=== PATIENT | female | born 1980 | race American Indian/Alaskan Native ===

== ENCOUNTER 2018-06-07 15:36 | Emergency (ER) | payer SELFPAY ==
[2018-06-07] MEDS ORDERED: Ketorolac 60 MG/2 ML SDV IM ONE (16:14)
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
--- NOTE | 2018-06-09 16:53 | CR ---
EXAM DATE: 06/07/18 PATIENT'S AGE: 38 Patient: LOREE POZO Facility: [place], [place] Site . Site : 1980 Study: XRay Pelvis sacrum/coccyx [id number] 5:15:32 PM Ordering Physician: Doctor Ruff Final Report: HISTORY: Fall. COMPARISON: None. FINDINGS: No evidence for acute fracture or dislocation. Soft tissues are within normal. Dictated by Brigitte Mims MD @ Jun 07 2018 5:27PM (Electronic Signature) Report Signed by Proxy. CUATE
== END 2018-06-07 17:49 | disposition home or self-care (01) ==
LOC: MW.ED 15:36
DX: S30.0XXA Contusion of lower back and pelvis, initial encounter (principal); S20.219A Contusion of unspecified front wall of thorax, initial encounter; Y04.0XXA Assault by unarmed brawl or fight, initial encounter
CPT/HCPCS: 71101; 72220; 96372; 99284; J1885

== ENCOUNTER 2018-06-15 14:06 | Emergency (ER) | payer SELFPAY ==
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
== END 2018-06-15 14:49 | disposition home or self-care (01) ==
LOC: MW.ED 14:06
DX: M54.42 Lumbago with sciatica, left side (principal); M54.41 Lumbago with sciatica, right side
CPT/HCPCS: 99283

== ENCOUNTER 2018-07-07 19:51 | Emergency (ER) | payer OTHER ==
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
[2018-07-07] MEDS ORDERED: Ketorolac 60 MG/2 ML SDV IM ONE (20:33)
== END 2018-07-07 21:55 | disposition home or self-care (01) ==
LOC: MW.ED 19:51
DX: M54.42 Lumbago with sciatica, left side (principal); X50.0XXA Overexertion from strenuous movement or load, initial encounter; W01.0XXA Fall on same level from slipping, tripping and stumbling without subsequent striking against object, initial encounter
CPT/HCPCS: 96372; 99283; J1885; J2360

== ENCOUNTER 2018-07-17 11:21 | Emergency (ER) | payer SELFPAY ==
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
--- NOTE | 2018-07-18 19:10 | CR ---
EXAM DATE: 07/17/18 PATIENT'S AGE: 38 Patient: LOREE POZO Facility: [place], [place] Site . Site : [id number] Study: XRay Spine Lumbar [id number] 12:36:16 PM Ordering Physician: Doctor Ruff Final Report: INDICATION: Low back pain. COMPARISON: None. FINDINGS: There are 5 lumbar-type vertebral bodies. The vertebral body heights and disc spaces are preserved. Spondylolysis without spondylolisthesis is noted at L5/S1 level. Bony alignment is normal. Bony mineralization is normal. The visualized sacroiliac joints are intact. Surgical clips in the right upper quadrant reflect prior cholecystectomy. IMPRESSION: L5/S1 spondylolysis without spondylolisthesis. Dictated by Bette Covarrubias MD @ Jul 17 2018 12:54PM (Electronic Signature) Report Signed by Proxy. CUATE
== END 2018-07-17 13:20 | disposition home or self-care (01) ==
LOC: MW.ED 11:21
DX: M48.36 Traumatic spondylopathy, lumbar region (principal)
CPT/HCPCS: 72100; 72100-26; 99283

== ENCOUNTER 2018-07-24 20:24 | Emergency (ER) | payer SELFPAY ==
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
== END 2018-07-24 20:45 ==
LOC: MW.ED 20:24
DX: Z02.89 Encounter for other administrative examinations (principal)
CPT/HCPCS: 99283

== ENCOUNTER 2018-08-05 08:41 | Emergency (ER) | payer SELFPAY ==
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
== END 2018-08-05 09:30 | disposition home or self-care (01) ==
LOC: MW.ED 08:41
DX: M54.5 Low back pain (principal); G89.29 Other chronic pain; Z79.899 Other long term (current) drug therapy; W10.9XXA Fall (on) (from) unspecified stairs and steps, initial encounter
CPT/HCPCS: 99283

== ENCOUNTER 2019-02-05 12:27 | Emergency (ER) | payer SELFPAY ==
--- NOTE | 2019-02-05 12:41 | EDM.PDOC ---
ED HPI GENERAL MEDICAL PROBLEM - General Chief Complaint: Upper Extremity Injury/Pain Stated Complaint: SMASHED FINGER Time Seen by Provider: 02/05/19 12:41 Source of Information: Reports: Patient History Limitations: Reports: No Limitations - History of Present Illness INITIAL COMMENTS - FREE TEXT/NARRATIVE: HISTORY AND PHYSICAL: History of present illness: Patient is a 39-year-old female here with complaint of right middle finger injury. She states she was moving some boxes this morning when a box fell landing on her right middle finger. She denies fevers, chills, nausea, vomiting. She is UTD on tetanus. Review of systems: As per history of present illness and below otherwise all systems reviewed and negative. Past medical history: As per history of present illness and as reviewed below otherwise noncontributory. Surgical history: As per history of present illness and as reviewed below otherwise noncontributory. Social history: No reported history of drug or alcohol abuse. Family history: As per history of present illness and as reviewed below otherwise noncontributory. Physical exam: General: Patient sitting comfortably in no acute distress and nontoxic appearing HEENT: Atraumatic, normocephalic, pupils reactive, negative for conjunctival pallor or scleral icterus, mucous membranes moist, throat clear, neck supple, nontender, trachea midline. No meningeal signs. Lungs: Clear to auscultation, breath sounds equal bilaterally, chest nontender. Heart: S1S2, regular, negative for clicks, rubs, or overt murmur. Abdomen: Soft, nondistended, nontender. Negative for masses or hepatosplenomegaly. Negative for costovertebral tenderness. No rigidity, rebound , guarding. Pelvis: Stable nontender. Genitourinary: Deferred. Rectal: Deferred. Extremities: Hematoma of the distal right finger just distal to the DIP. Patient has acrylic nails on but a subungual hematoma is noted at the proximal nail plate. She is able to flex at the DIP and PIP without difficultly or pain. negative for cords or calf pain. Neurovascular unremarkable. Neuro: Awake, alert, oriented. Cranial nerves II through XII unremarkable. Cerebellum unremarkable. Motor and sensory unremarkable throughout. Exam nonfocal. Notes: Distal 3rd right finger was cleansed with an alcohol swab and a small poke made with an 18 gauge needle in the area of the hematoma. A moderate amount of purulent fluid ensued. Nail trephination of the nail plate achieved using an electrocautery pen. Diagnostics: x-ray finger Therapeutics: Prescriptions: Bactrim Impression: Finger injury, abscess Plan: 1. Take medication as instructed 2. Follow up with primary care provider 3. Return to ED as needed as discussed Definitive disposition and diagnosis as appropriate pending reevaluation and review of above. right 3rd finger Pain Score (Numeric/FACES): 8 - Related Data Allergies Allergy/AdvReac Type Severity Reaction Status Date / Time No Known Allergies Allergy Verified 02/05/19 12:37 Home Meds: Home Meds Sulfamethoxazole/Trimethoprim [Bactrim Ds Tablet] 1 each PO BID 7 Days #14 tablet 02/05/19 [Rx] Past Medical History - Past Health History Medical/Surgical History: Denies Medical/Surgical History Cardiovascular History: Reports: Hypertension Musculoskeletal History: Reports: Back Pain, Chronic Psychiatric History: Reports: Emotional Problems - Infectious Disease History Infectious Disease History: Reports: None - Past Surgical History Cardiovascular Surgical History: Reports: None GI Surgical History: Reports: Cholecystectomy Social & Family History - Family History Family Medical History: Noncontributory - Caffeine Use Caffeine Use: Reports: Coffee, Energy Drinks, Soda, Tea Review of Systems - Review of Systems Review Of Systems: ROS reveals no pertinent complaints other than HPI. ED EXAM, GENERAL - Physical Exam Exam: See Below (see dictation) Course - Vital Signs Last Recorded V/S: Last Vital Signs Temp 97.6 F 02/05/19 12:37 Pulse 58 L 02/05/19 13:59 Resp 18 02/05/19 13:59 BP 186/91 H 02/05/19 13:59 Pulse Ox 100 02/05/19 13:59 Departure - Departure Time of Disposition: 13:42 Disposition: Home, Self-Care 01 Condition: Good Clinical Impression: Finger injury, Abscess - Discharge Information Prescriptions: Sulfamethoxazole/Trimethoprim [Bactrim Ds Tablet] 1 each PO BID 7 Days #14 tablet Instructions: Skin Abscess, Finger Sprain, Adult Referrals: PCP,Unknown [Primary Care Provider] - Forms: ED Department Discharge Additional Instructions: The following information is given to patients seen in the emergency department who are being discharged to home. This information is to outline your options for follow-up care. We provide all patients seen in our emergency department with a follow-up referral. The need for follow-up, as well as the timing and circumstances, are variable depending upon the specifics of your emergency department visit. If you don't have a primary care physician on staff, we will provide you with a referral. We always advise you to contact your personal physician following an emergency department visit to inform them of the circumstance of the visit and for follow-up with them and/or the need for any referrals to a consulting specialist. The emergency department will also refer you to a specialist when appropriate. This referral assures that you have the opportunity for follow-up care with a specialist. All of these measure are taken in an effort to provide you with optimal care, which includes your follow-up. Under all circumstances we always encourage you to contact your private physician who remains a resource for coordinating your care. When calling for follow-up care, please make the office aware that this follow-up is from your recent emergency room visit. If for any reason you are refused follow-up, please contact the [facility] Emergency Department at and asked to speak to the emergency department charge nurse. [facility] [address] [place] [address] [id number] [address] [address] 1. Take medication as instructed 2. Follow up with primary care provider 3. Return to ED as needed as discussed
--- NOTE | 2019-02-05 13:12 | CR ---
EXAMINATION: Right hand, third digit HISTORY: Injury COMPARISON: None TECHNIQUE: 3 views FINDINGS/IMPRESSION: There is no acute osseous abnormality, dislocation, or fracture. Prominent mineralization and joint spaces are preserved. Moderate focal soft tissue swelling involving the distal third phalanx.
== END 2019-02-05 13:59 | disposition home or self-care (01) ==
LOC: MW.ED 12:27
DX: S60.131A Contusion of right middle finger with damage to nail, initial encounter (principal); L02.511 Cutaneous abscess of right hand; I10 Essential (primary) hypertension; W20.8XXA Other cause of strike by thrown, projected or falling object, initial encounter
CPT/HCPCS: 11740; 73140-26-F7; 73140-F7; 99282; 99283-25

== ENCOUNTER 2020-02-25 16:55 | Emergency (ER) | payer MEDICAID, OTHER ==
[2020-02-25] MEDS ORDERED: Ondansetron 4 MG Tab.DIS PO ONE (17:10)
--- NOTE | 2020-02-25 17:10 | EDM.PDOC ---
ED HPI GENERAL MEDICAL PROBLEM - General Chief Complaint: Respiratory Problem Stated Complaint: COUGH,CONGESTION,UPPER RESPIRATORY Time Seen by Provider: 02/25/20 17:00 Source of Information: Reports: Patient History Limitations: Reports: No Limitations - History of Present Illness INITIAL COMMENTS - FREE TEXT/NARRATIVE: HISTORY AND PHYSICAL: History of present illness: Patient is a 40-year-old female who presents to the emergency room with complaints of body aches, subjective fever, chills, cough, mild SOB and nausea. She states symptoms started on Saturday and have progressively gotten worse. She has been using [id number] medications without much relief. Denies any recent travel or exposure to anyone that has known to been ill. Patient denies any previous/trauma, change in vision, syncope or near syncope. Denies any chest pain, back pain, abdominal pain, vomiting, diarrhea, constipation or dysuria. Denies any chance of . Patient has been eating and drinking "okay", but has been less than usual. Review of systems: As per history of present illness and below otherwise all systems reviewed and negative. Past medical history: As per history of present illness and as reviewed below otherwise noncontributory. Surgical history: As per history of present illness and as reviewed below otherwise noncontributory. Social history: See social history for further information Family history: As per history of present illness and as reviewed below otherwise noncontributory. Physical exam: General: Well-developed and well-nourished 40-year-old female. Alert and oriented. Nontoxic-appearing and in no acute distress. HEENT: Atraumatic, normocephalic, pupils equal and reactive bilaterally, negative for conjunctival pallor or scleral icterus, mucous membranes moist, TMs normal bilaterally, throat clear, neck supple, nontender, trachea midline. No drooling or trismus noted. No meningeal signs. No hot potato voice noted. Lungs: Slightly diminished bilaterally, breath sounds equal bilaterally, chest nontender. Heart: S1S2, regular rate and rhythm without overt murmur Abdomen: Soft, nondistended, nontender. Skin: Intact, warm, dry. No lesions or rashes noted. Extremities: Atraumatic, moves all extremities per self without difficulty or deficits, negative for cords or calf pain. Neurovascular unremarkable. Neuro: Awake, alert, oriented. Cranial nerves II through XII unremarkable. Cerebellum unremarkable. Motor and sensory unremarkable throughout. Exam nonfocal. Notes: Mild perihilar bronchitis most likely viral in etiology. VSS. Medication, COVID precautions and supportive care measures were reviewed and discussed. Voices understanding and is agreeable to plan of care. Denies any further questions or concerns at this time. Diagnostics: Influenza, CXR, COVID-19 Therapeutics: Zofran Prescription: Zofran, Z-sera Impression: Bronchitis Plan: 1. Take the prescribed medications as directed. We did test you for COVID-19. STAY HOME UNTIL RESULTS have returned. These can take 2-4 days to come back. We will call you with these results as they come back. Continue to monitor your symptoms. For further questions related to the COVID-19, the public can call the [facility] hotline at from 7am - 7pm Saturday - Saturday. 2. Good handwashing (at least 20 seconds) and frequently. Contact precautions such as coughing into your elbow, etc... 3. You can alternate Tylenol and ibuprofen as needed for pain and fever management. 3. Please follow-up with your primary care provider as we discussed. Return to the ED as needed and as discussed. Definitive disposition and diagnosis as appropriate pending reevaluation and review of above. Upper Body Pain Score (Numeric/FACES): 7 - Related Data Allergies Allergy/AdvReac Type Severity Reaction Status Date / Time No Known Allergies Allergy Verified 02/25/20 17:02 Home Meds: Home Meds Azithromycin [Zithromax] 1 dose PO DAILY 5 Days #6 tab 02/25/20 [Rx] Benzonatate [Tessalon Perle] 100 mg PO TID PRN #20 capsule 02/25/20 [Rx] Ondansetron [Zofran ODT] 4 mg PO Q6H PRN #6 tab.dis 02/25/20 [Rx] Past Medical History - Past Health History Medical/Surgical History: Denies Medical/Surgical History Cardiovascular History: Reports: Hypertension Musculoskeletal History: Reports: Back Pain, Chronic Psychiatric History: Reports: Emotional Problems - Infectious Disease History Infectious Disease History: Reports: None - Past Surgical History Cardiovascular Surgical History: Reports: None GI Surgical History: Reports: Cholecystectomy Social & Family History - Family History Family Medical History: Noncontributory - Caffeine Use Caffeine Use: Reports: Coffee, Energy Drinks, Soda, Tea ED ROS GENERAL - Review of Systems Review Of Systems: Comprehensive ROS is negative, except as noted in HPI. ED EXAM, GENERAL - Physical Exam Exam: See Below (See dictation) Course - Vital Signs Last Recorded V/S: Last Vital Signs Temp 98.3 F 02/25/20 17:47 Pulse 72 02/25/20 17:47 Resp 20 02/25/20 17:47 BP 147/91 H 02/25/20 17:47 Pulse Ox 100 02/25/20 17:47 - Orders/Labs/Meds Orders: Active Orders 24 hr Category Date Time Status CORONAVIRUS COVID-19 PCR PHL [MREF] Stat Lab 02/25/20 17:40 Received Isolation [COMM] Routine Oth 02/25/20 17:08 Active Meds: Medications Discontinued Medications Generic Name Dose Route Start Last Admin Trade Name Freq PRN Reason Stop Dose Admin Ondansetron HCl 4 mg 02/25/20 17:10 02/25/20 17:46 Zofran Odt PO 02/25/20 17:11 4 mg ONETIME ONE Administration Departure - Departure Time of Disposition: 18:18 Disposition: Home, Self-Care 01 Clinical Impression: Bronchitis - Discharge Information Prescriptions: Azithromycin [Zithromax] 1 dose PO DAILY 5 Days #6 tab Benzonatate [Tessalon Perle] 100 mg PO TID PRN #20 capsule PRN Reason: Cough Ondansetron [Zofran ODT] 4 mg PO Q6H PRN #6 tab.dis PRN Reason: Nausea Instructions: Acute Bronchitis, Adult, [id number] Referrals: PCP,None [Primary Care Provider] - Forms: ED Department Discharge Additional Instructions: The following information is given to patients seen in the emergency department who are being discharged to home. This information is to outline your options for follow-up care. We provide all patients seen in our emergency department with a follow-up referral. The need for follow-up, as well as the timing and circumstances, are variable depending upon the specifics of your emergency department visit. If you don't have a primary care physician on staff, we will provide you with a referral. We always advise you to contact your personal physician following an emergency department visit to inform them of the circumstance of the visit and for follow-up with them and/or the need for any referrals to a consulting specialist. The emergency department will also refer you to a specialist when appropriate. This referral assures that you have the opportunity for follow-up care with a specialist. All of these measure are taken in an effort to provide you with optimal care, which includes your follow-up. Under all circumstances we always encourage you to contact your private physician who remains a resource for coordinating your care. When calling for follow-up care, please make the office aware that this follow-up is from your recent emergency room visit. If for any reason you are refused follow-up, please contact the [facility] Emergency Department at and asked to speak to the emergency department charge nurse. [facility] [address] [place] [id number] [place] [address] 1. Take the prescribed medications as directed. We did test you for COVID-19. STAY HOME UNTIL RESULTS have returned. These can take 2-4 days to come back. We will call you with these results as they come back. Continue to monitor your symptoms. For further questions related to the COVID-19, the public can call the [facility] hotline at from 7am - 7pm Saturday - Saturday. 2. Good handwashing (at least 20 seconds) and frequently. Contact precautions such as coughing into your elbow, etc... 3. You can alternate Tylenol and ibuprofen as needed for pain and fever management. 3. Please follow-up with your primary care provider as we discussed. Return to the ED as needed and as discussed. Sepsis Event Note - Evaluation Sepsis Screening Result: No Definite Risk - Focused Exam Vital Signs: Vital Signs Temp Pulse Resp BP Pulse Ox 02/25/20 17:47 98.3 F 72 20 147/91 H 100 02/25/20 17:02 98.4 F 80 16 140/85 99 Date Exam was Performed: 02/25/20 Time Exam was Performed: 18:17 - My Orders Last 24 Hours: My Active Orders 02/25/20 17:08 Isolation [COMM] Routine 02/25/20 17:40 CORONAVIRUS COVID-19 PCR PHL [MREF] Stat - Assessment/Plan Last 24 Hours: My Active Orders 02/25/20 17:08 Isolation [COMM] Routine 02/25/20 17:40 CORONAVIRUS COVID-19 PCR PHL [MREF] Stat
--- NOTE | 2020-02-25 17:52 | CR ---
Chest: Portable view of the chest was obtained. Comparison: Previous chest x-ray is not available. Cardiothymic silhouette is normal. Mild increased perihilar interstitial change is seen possibly due to mild bronchitis. Lungs otherwise are clear. Bony structures are unremarkable. Impression: 1. Mild perihilar bronchitis most likely viral in etiology. 2. No additional abnormality is appreciated on portable chest x-ray. Diagnostic code #3 This report was dictated in MDT
== END 2020-02-25 19:11 | disposition home or self-care (01) ==
LOC: MW.ED 16:55
DX: J40 Bronchitis, not specified as acute or chronic (principal); Z90.49 Acquired absence of other specified parts of digestive tract; Z20.828 Contact with and (suspected) exposure to other viral communicable diseases
CPT/HCPCS: 71045; 87635; 87804; 99283; A9270; U0002

== ENCOUNTER 2022-11-28 18:01 | Emergency (ER) | payer MEDICAID, OTHER | END 2022-11-28 21:00 | disposition left against medical advice (07) | LOC: MW.ED 18:01 | DX: Z53.21 Procedure and treatment not carried out due to patient leaving prior to being seen by health care provider (principal) ==

== ENCOUNTER 2023-03-17 06:20 | Emergency (ER) | payer MEDICAID ==
[2023-03-17] MEDS ORDERED: Sodium Chloride 0.9% 10 ML Syringe FLUSH PRN (06:41)
[2023-03-17] MEDS ORDERED: Sodium Chloride 0.9% 2.5 ML Syringe FLUSH PRN (06:41)
[2023-03-17] MEDS ORDERED: Metoclopramide 10 MG/2 ML SDV IVPUSH ONE (06:42)
[2023-03-17 07:05] LABS: CARBON DIOXIDE,CO2 23.5 mmol/L (21.0-32.0); POTASSIUM,K 3.9 mmol/L (3.5-5.1)
[2023-03-17 08:26] LABS: CORONAVIRUS COVID-19 NAA NEGATIVE (NEGATIVE)
[2023-03-17 08:27] LABS: INFLUENZA A NAA NEGATIVE (NEGATIVE); INFLUENZA B NAA NEGATIVE (NEGATIVE)
== END 2023-03-17 08:42 | disposition home health service (06) ==
LOC: MW.ED 06:20
DX: R51.9 Headache, unspecified (principal); I10 Essential (primary) hypertension; Z20.822 Contact with and (suspected) exposure to COVID-19
CPT/HCPCS: 0240U; 36415; 70450; 71046; 80053; 84484; 84703; 85025; 93005; 96374; 99285; J2765; J3490; 99284

== ENCOUNTER 2024-05-21 19:01 | Emergency (ER) | payer OTHER ==
[2024-05-21] MEDS: Amoxicillin/Clavulanate K 875-125 MG Tab PO ONE (19:53)
== END 2024-05-21 20:04 | disposition home or self-care (01) ==
LOC: MW.ED 19:01
DX: S81.851A Open bite, right lower leg, initial encounter (principal); I10 Essential (primary) hypertension; Z79.899 Other long term (current) drug therapy; Z90.49 Acquired absence of other specified parts of digestive tract; W54.0XXA Bitten by dog, initial encounter
CPT/HCPCS: 99283; A9270-GY